=== PATIENT | male | born 1970 | race Hispanic/Latino ===

== ENCOUNTER 2017-10-03 22:50 | Emergency (ER) | payer BC ==
[~2017-10-03] VITALS: Ht 170.2 cm; Wt 163.5 kg
[2017-10-03 22:53] VITALS: BP 137/99
[2017-10-03 23:11] LABS: HEMATOCRIT 43.2 % (38.0-50.0); HEMOGLOBIN 14.9 G/DL (12.5-16.6); MCH 30.1 PG (29.0-34.0); MCHC 34.5 G/DL (30.0-36.0); MCV 87.3 FL (86-99); PLATELET COUNT 178 K/uL (156-360); RBC DIS.WIDTH-CV 12.5 % (11.8-14.6); RBC DIS.WIDTH-SD 39.8 % (39-53); RED BLOOD COUNT 4.95 M/uL (4.00-5.50); WHITE BLOOD COUNT 7.8 K/uL (4.1-10.2)
[2017-10-03 23:22] LABS: CHLORIDE 102 mEq/L (99-109); POTASSIUM 4.3 mEq/L (3.7-5.4); SODIUM 136 mEq/L (136-147)
[2017-10-03 23:23] LABS: GLUCOSE 107 mg/dL (70-99)
[2017-10-03 23:28] LABS: UREA NITROGEN (BUN) 14 mg/dL (9-23)
[2017-10-03 23:30] LABS: GFR ESTIMATE (CALCULATED) > 59 mL/min/ (58.99-99999)
[2017-10-04] MEDS ORDERED: ZITHROMAX250 MG PO (01:01)
[2017-10-04] MEDS ORDERED: TESSALON PERLE100 MG PO (01:08)
== END 2017-10-04 01:18 | disposition home or self-care (01) ==
LOC: EME 22:50
DX: J20.9 Acute bronchitis, unspecified (principal); I10 Essential (primary) hypertension; F41.9 Anxiety disorder, unspecified
CPT/HCPCS: 71046; 80048; 85027